=== PATIENT | male | born 2005 ===

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

== ENCOUNTER 2025-04-30 09:17 | Outpatient (AMB) | payer MEDICAID, SELFPAY ==
--- NOTE | 2025-04-30 09:42 | A.SCHOOL_ITS ---
Intake Vital Signs 04/30/25 10:20 Height 5 ft 6.14 in Weight 141 lb BMI 22.7 BP 100/58 L Blood Pressure Location Lt brachial Respiration 18 Pulse 60 Temp 97.1 F Pulse Oximetry (%) 98 Intake Visit Reasons: Physical Allergies zachary butter Allergy (Uncoded 04/30/25 10:59) Unknown HPI HPI Comments History of Present Illness Details Here today for a sports physical. Playing soccer. He is a 12th grader. Doing well in school. Healthy adult male. Denies any significant PMH. He mentions being told he had a murmur at some point. Denies any cardiovascular symptoms such as: fatigue, dizziness, syncopal episodes, chest pain, or palpitations. Denies allergies. Does not take medication. Has been here at [facility] for 2 years now. Has a trusted adult. Lives with mom, 3 brothers and 1 sister. Born in [facility] [place], moved to [facility] at roughly age 8 yo. Moved to the approximately 2 years ago. Spanish is his primary language. He does speak Anguillan well and declines the need for an glassine machine tender at todays visit. Planning to go to [employer] next year. Loves running and playing soccer, mostly defense positions. Has had some minor injuries related to soccer. He has a PCP at [facility]. Not seeing a dentist yet. [facility] Family History (Updated 04/30/25 @ 10:39 by MELANIE Gongora) Brother No problems noted. Social History (Updated 04/30/25 @ 09:52 by MELANIE Gongora) Household Members Other:: Lives with mom, 3 brothers and 1 sister Questionnaire PHQ-9: Modified for Teens Feeling down, depressed, irritable or hopeless?: Not at all Little interest or pleasure in doing things?: Not at all Trouble falling asleep, staying asleep, or sleeping too much?: Several Days Poor appetite, weight loss or overeating?: Not at all Feeling tired, or having little energy?: Several Days Feeling bad about yourself-or feeling that you are a failure, or that you let yourself/your family down?: Several Days Trouble concentrating on things like school work, reading, or watching TV?: Not at all Moving/speaking so slowly that other people have noticed? Or the opposite-being so fidgety that you were moving more than usual?: Not at all Thoughts that you would be better off , or of hurting yourself in some way?: Not at all In the past year have you felt depressed or sad most days, even if you felt okay sometimes?: Yes How difficult have these problems made it for you to do your work, take care of things at home, or get along with other?: Not difficult at all Has there been a time in the past month when you have had serious thoughts about ending your life?: No Have you ever, in your entire life, tried to kill yourself or made a suicide attempt?: No Score: 3 Depression Screening Interpretation: Negative Depression Screening Done: Yes PHQ Assessment Billing PHQ Assessment Tool: PHQ Assessment 74753 DIAMANTE-7 AMB Questionnaire DIAMANTE-7 Feeling nervous, anxious, or on edge: 0 = Not at all Not being able to stop or control worryin = Not at all Worrying too much about different things: 0 = Not at all Trouble relaxin = Several days Being so restless that it is hard to sit still: 0 = Not at all Becoming easily annoyed or irritable: 0 = Not at all Feeling afraid as if something awful might happen: 0 = Not at all Total DIAMANTE-7 score (0-4 normal; 5-9 mild; 10-14 moderate; 15-21 severe): 1 Source: Developed by Drs. Thomas Perez, Estefany Ambriz, Bryan Donato and colleagues, with an educational anahi from [email or web address]. DIAMANTE-7 Assessment Billing DIAMANTE-7 Assessment Tool: DIAMANTE-7 Assessment 63422 CRAFFT Screening Tool PART A: In the PAST 12 MONTHS, did you: Drink any alcohol (more than few sips)? (Do not count sips of alcohol taken during family or zoroastrianism events.): No Smoke any marijuana or hashish?: No Use anything else to get high? (includes illegal drugs, over the counter/prescription drugs, or things that you sniff/sandoval?): No PART B: If answered YES to ANY above: Have you ever been in a CAR driven by someone (including yourself) who was high or had been using alcohol or drugs?: No Do you ever use alcohol or drugs to RELAX, feel better about yourself, or fit in?: No Do you ever use alcohol or drugs while you are by yourself, or ALONE?: No Do you ever FORGET things while using alcohol or drugs?: No Do your FAMILY or FRIENDS ever tell you that you should cut down on your drinking or drug use?: No Have you ever gotten into TROUBLE while you were using alcohol or drugs?: No CRAFFT Assessment Charge Crafft: CRAFFT 78786 Review of Systems Const Reports no additional complaints Eyes Reports no additional complaints ENT Reports no additional complaints Card Reports no additional complaints Resp Reports no additional complaints GI Reports no additional complaints Reports no additional complaints Musc Reports no additional complaints Skin/Breast Reports system reviewed and no additional complaints, except as documented Neuro Reports no additional complaints Psych Reports no additional complaints Endo Reports no additional complaints Pepe/Lymph Reports no additional complaints Aller/Immun Reports no additional complaints Physical exam (School Based) Vital Signs: Last Vital Signs Temp 97.1 F 04/30/25 10:20 Pulse 60 04/30/25 10:20 Resp 18 04/30/25 10:20 BP 100/58 L 04/30/25 10:20 Pulse Ox 98 04/30/25 10:20 Depression Screening Interpretation: Negative Const General: cooperative, healthy appearing and comfortable Orientation/consciousness: oriented to person, oriented to place and oriented to time HENMT Head: Yes normal to inspection Ears: TM's normal bilaterally General nose exam: Normal external nose present and Abnormal mucous membranes and turbinates present boggy Mouth: Normal oral and palatal mucosa present and oropharynx normal Throat: Yes posterior oropharynx normal Eyes Other: 20/20 both eyes- Snellen General: appearance normal, both eyes and all related structures Neck Neck: Yes normal visual inspection and Yes no lymphadenopathy Thyroid: Thyroid normal Chest Chest palpation & inspection: normal inspection of the chest Resp Effort & Inspection: normal respiratory effort Auscultation: clear to auscultation bilaterally Cardio Other: auscultated in sitting and supine position Rate: regular rate Rhythm: regular rhythm Peripheral pulses: Peripheral pulses 2+ throughout GI Inspection: Yes normal to inspection Palpation (GI): Soft to palpation and nontender Auscultation: normal bowel sounds Skin General skin exam: no rashes or lesions noted Neuro General: oriented to person, oriented to place and oriented to time Extrem General: Yes normal to inspection Psych Appearance: grossly normal Speech and movement: Normal speech and movement present Affect: normal affect Attitude: cooperative Assessment and Plan Assessment & Plan (1) Sports physical: Comment: Healthy young adult. Cleared to participate in athletics. Code(s): Z02.5 - Encounter for examination for participation in sport Coding Level of Care Code New Pt Level 4 (93313) Diagnoses Sports physical Z02.5 Additional Codes CRAFFT Assessment Charge - Crafft: CRAFFT 84522 ([id number]) PHQ Assessment Billing - PHQ Assessment Tool: PHQ Assessment 28786 ([id number]) DIAMANTE-7 Assessment Billing - DIAMANTE-7 Assessment Tool: DIAMANTE-7 Assessment 20209 ([id number]) Time Spent (min) 45
--- OUTSIDE RECORDS SUMMARY | 2025-04-30 10:02 | XMS_ITS | Clinical Summary ---
Author Organization [employer] Address [address] [place] [address] Care Team Providers Care Warehouse Manager Name Role Phone Betty Howe MASON Primary Care Provider [phone] Allergies No known active allergies Active Problems Problem Noted Date Diagnosed Date Encounter for routine adult health examination without abnormal findings 07/18/2024 Assessment & Plan (07/18/2024 5:03 PM EST): -age appropriate screening and immunizations up to date (STI screening) -Vaccines Due: hepatitis B, MMR, IPV, varicella. Patient opt's to return for vaccines due to time constraint -low cardiovascular risk -mental health screening not completed today. To be assessed at next visit -healthy social behaviors encouraged -Healthy Living Plan (5,2,1,0) discussed Immunizations Immunization Administration Dates Next Due HPV 9-Valent 04/27/2024 Hep B, Adolescent or Pediatric 04/27/2024 Hep B, adult 09/27/2024,11/22/2023 IPV 04/27/2024,11/22/2023 MMR 04/27/2024,11/22/2023 Meningococcal MPSV4 11/22/2023 Tdap 11/22/2023 Varicella 04/27/2024,11/22/2023 Social History Tobacco Use Types Packs/Day Years Used Date Smoking Tobacco: Never Tobacco Cessation:Counseling Given: Not Answered Alcohol Use Standard Drinks/Week Comments Never 0 (1 standard drink = 0.6 oz pur e alcohol) Sex and Gender Information Value Date Recorded Sex Assigned at Male 12/19/2023 7:01 PM EDT Legal Sex Male 6:48 PM EDT Gender Identity Choose not to disclose 7:01 PM EDT Sexual Orientation Choose not to disclose 2023 7:01 PM EDT Last Filed Vital Signs Vital Sign Reading Time Taken Comments Blood Pressure 127/82 04/23/2024 2:37 PM EDT Pulse 56 04/23/2024 2:37 PM EDT Temperature 36.6 C (97.9 F) 04/23/2024 2:37 PM EDT Respiratory Rate - - Oxygen Saturation 98% 04/23/2024 2:37 PM EDT Inhaled Oxygen Concentration - - Weight 61.1 kg (134 lb 9.6 oz) 04/23/2024 2:37 P M EDT Height - - Body Mass Index - - Plan of Treatment Health Maintenance Due Date Last Done Comments Depression Screening 2005 HIV Screening 2005 SDOH Screening 2005 Disability Screening 2005 Alcohol/Substance Use Screening 2017 Family Planning (PISQ) 2020 Meningococcal B Vaccine (1 o f 2 - Standard) 2021 Hepatitis C Screening 2023 HPV Vaccines (2 - 3-dose series) 05/25/2024 04/27/2024 IPV Vaccines (3 of 3 - Adult catch-up series) 10/25/2024 04/27/2024, 11/22/2023 COVID-19 Vaccine (1 - 2023-2 5 season) 2025 Influenza Vaccine (#1) 2025 Chlamydia and Gonorrhea Screening 04/23/2025 04/23/2024 Tobacco Screening 04/23/2025 04/23/2024 DTaP/Tdap/Td Vaccines (2 - T d or Tdap) 11/21/2033 11/22/2023 Zoster Vaccines (1 of 2) 2055 RSV Patients and Patients Aged 60 years or older (1 - 1-dose 75+ series) 2080 Meningococcal Vaccine Aged Out 11/22/2023 No deshawn ana eligible based on patient's age to complete this topic MMR Vaccines Completed 04/27/2024, 11/22/2023 Varicella Vaccines Completed 04/27/2024, 11/22/2023 Hepatitis B Vaccines Completed 09/27/2024, 04/27/2024, 11/22/2023 Fluoride Varnish Discontinued HIB Vaccines Aged Out No longer eligi ble based on patient's age to complete this topic Hepatitis A Vaccines Aged Out No long er eligible based on patient's age to complete this topic Pneumococcal Vaccine: Pediatrics (0 to 5 Years) and At-Risk Patients (6 to 49) Years Aged Out No longer eligible based on patient's age to complete this topic RSV under 20 months Aged Out No longe r eligible based on patient's age to complete this topic Rotavirus Vaccines Aged Out No longer eligible based on patient's age to complete this topic Procedures Procedure Name Priority Date/Time Associated Diagnosis Comments CHLAMYDIA/N. GONORRHOEAE RNA, TMA, UROGENITAL Routine 04/23/2024 2:40 PM EDT Encounter for routine adult health examination without abnormal findings from Last 3 Months or Most Recently Relevant to Health Maintenance Results * Chlamydia/N. Gonorrhoeae RNA, TMA, Urogenitial (04/23/2024 2:40 PM EDT) CT PCR NOT DETECTED Not Detect. [facility] Comment:A not detected test result does not exclude the possibilityof infection because test results can be affected byimproper specimen collection, concurrent antibiotic therapy,or the number of organisms in the specimen which may bebelow the sensitivity of the test. As with many diagnostictests, results from the Xpert CT/NG assay should beinterpreted in conjunction with other laboratory andclinical data available to the clinician.Xpert CT/NG performance has not been evaluated in patientsless than 14 years of age. The assay should not be used forthe evaluationof suspected sexual abuse or for other medico-legalindications. Additional testing is recommended in anycircumstance when false positive or false negative resultscould lead to adverse medical, social or psychologicalconsequences. NG PCR NOT DETECTED Not Detect. [facility] Comment:A not detected test result does not exclude the possibilityof infection because test results can be affected byimproper specimen collection, concurrent antibiotic therapy,or the number of organisms in the specimen which may bebelow the sensitivity of the test. As with many diagnostictests, results from the Xpert CT/NG assay should beinterpreted in conjunction with other laboratory andclinical data available to the clinician.Xpert CT/NG performance has not been evaluated in patientsless than 14 years of age. The assay should not be used forthe evaluationof suspected sexual abuse or for other medico-legalindications. Additional testing is recommended in anycircumstance when false positive or false negative resultscould lead to adverse medical, social or psychologicalconsequences. Urine (Urine, Random) 04/23/2024 2:40 PM EDT 04/23/2024 4:58 PM EDT Narrative [facility] - 04/23/2024 6:40 PM EDT Urine us Betty Howe NP LAB MICROBIOLOGY - [facility]OWN[facility] Final Result [facility] [address] [place] [address] [phone] from Last 3 Months or Most Recently Relevant to Health Maintenance Insurance [employer] Care Teams Warehouse Manager Relationship Specialty Start Date End Date Betty Howe NP [address] [place] [address] PCP - General Family Medicine 04/23/24
[2025-04-30 10:20] VITALS: BP 100/58; PULSE 60; RESP 18; TEMP 36.2; O2SAT 98; BMI 22.7
== END 2025-04-30 09:34 | disposition home or self-care (01) ==
LOC: HO.SBHN 09:17
PROVIDERS: Visit Provider Nurse Practitioner Family
DX: Z02.5 Encounter for examination for participation in sport (principal); Z13.30 Encounter for screening examination for mental health and behavioral disorders, unspecified
CPT/HCPCS: 99204

== ENCOUNTER → 2025-04-30 09:17 | Outpatient (BNVA) | payer SELFPAY | PROVIDERS: Visit Provider Nurse Practitioner Family | DX: Z02.5 Encounter for examination for participation in sport (principal) | CPT/HCPCS: 96127; 96160; 99212 ==

== ENCOUNTER 2025-06-05 11:20 | Outpatient (AMB) | payer MEDICAID, SELFPAY ==
--- NOTE | 2025-06-05 12:02 | MHC.SBHC.OV ---
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 It is painful. He has had some trouble walking. He has not yet seen a medical professional. [facility] is listed as his primary care. He has not yet seen anyone at this office. He walked to school this morning, it was not easy. [facility] Family History (Updated 04/30/25 @ 10:39 by MELANIE Gongora) Brother No problems noted. Social History (Updated 04/30/25 @ 09:52 by MELANIE Gongora) Household Members Other:: Lives with mom, 3 brothers and 1 sister Review of Systems Const Reports no additional complaints Musc Reports as per HPI Physical exam (School Based) Vital Signs: Last Vital Signs Temp 98.7 F 06/05/25 12:23 Pulse 57 06/05/25 12:23 Resp 18 06/05/25 12:23 BP 138/85 06/05/25 12:23 Pulse Ox 99 06/05/25 12:23 Const General: cooperative, healthy appearing and comfortable Resp Effort & Inspection: normal respiratory effort Auscultation: clear to auscultation bilaterally Cardio Rate: regular rate Rhythm: regular rhythm Extrem Other: Right knee is visibly edematous. Knee and lower thigh with edema. There is point tenderness on the medial lower aspect of the patella. He can full extend his knee; there is difficulty with ROM with flexion Office Meds ibuprofen 200 mg tablet Performing Provider: MELANIE Gongora Performing Location: [facility] Administered by: MELANIE Gongora on 06/05/25 12:07 Dose Route Admin Location Dispensed Lot Number Expiration Date NDC Operator Engineer 400 mg PO 400 mg [id number] 10/29/26 6426-3997-31 [employer] Assessment and Plan Assessment & Plan (1) Knee injury: Comment: Significant injury to right knee. Will need follow up; possibly imaging. Ibuprofen in office. Recommended seeing PCP today- Ana María AL- helping Mars obtain an appt Code(s): S89.90XA - Unspecified injury of unspecified lower leg, initial encounter Qualifiers: Encounter type: initial encounter Laterality: left Qualified Code(s): S89.92XA - Unspecified injury of left lower leg, initial encounter Orders: Orders School Based Oral Medications 06/05/25 S89.90XA - Unspecified injury of unspecified lower leg, initial encounter Coding Level of Care Code Est Pt Level 4 (97097) Diagnoses Injury of left knee, initial encounter S89.92XA Encounter type: initial encounter Laterality: left Time Spent (min) 30
[2025-06-05 12:23] VITALS: BP 138/85; PULSE 57; RESP 18; TEMP 37.1; O2SAT 99; BMI 23.9
== END 2025-06-05 11:56 | disposition home or self-care (01) ==
LOC: HO.SBHN 11:20
PROVIDERS: Visit Provider Nurse Practitioner Family
DX: S80.911A Unspecified superficial injury of right knee, initial encounter (principal)
CPT/HCPCS: 99214

== ENCOUNTER → 2025-06-05 11:20 | Outpatient (BNVA) | payer OTHER, SELFPAY | PROVIDERS: Visit Provider Nurse Practitioner Family | DX: S89.91XA Unspecified injury of right lower leg, initial encounter (principal) | CPT/HCPCS: 99212 ==